=== PATIENT | female | born 1965 | race Two or more races ===

== ENCOUNTER 2018-09-19 19:42 | Emergency (ER) | payer SELFPAY ==
[2018-09-19] MEDS ORDERED: IPRATRPIUM/ALBUTEROL 0.5/2.5MG 3 ML NEBU. ONE (19:45)
[2018-09-19] MEDS ORDERED: IPRATRPIUM/ALBUTEROL 0.5/2.5MG 3 ML NEBU. NEB ONE ×2 (20:00→20:15)
[2018-09-19 20:30] VITALS: BP 162/99
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
== END 2018-09-19 20:35 | disposition home or self-care (01) ==
LOC: ER 19:42
DX: J45.901 Unspecified asthma with (acute) exacerbation (principal); F41.9 Anxiety disorder, unspecified; M19.90 Unspecified osteoarthritis, unspecified site; J44.9 Chronic obstructive pulmonary disease, unspecified; F32.9 Major depressive disorder, single episode, unspecified; G43.909 Migraine, unspecified, not intractable, without status migrainosus; Z88.6 Allergy status to analgesic agent
CPT/HCPCS: 94640; 99284; J7620